=== PATIENT | female | born 1975 | race Caucasian/White ===

== ENCOUNTER 2016-03-28 22:05 | Emergency (ER) | payer MEDICAID, OTHER ==
[~2016-03-28] VITALS: Ht 160 cm; Wt 125.2 kg
[2016-03-28 23:01] VITALS: BP 155/87
--- NOTE | 2016-03-29 01:10 | NUR ---
TO ER BED 7
--- NOTE | 2016-03-29 01:18 | NUR ---
Megan martinez in [facility] - 03/29/16 at 0119 by [facility] TO ER BED 7
--- NOTE | 2016-03-29 01:28 | NUR ---
PATIENT PRESENTS TO ED WITH RECTAL BLEEDING . PT STATES SHE NOTICED THE BLEED AROUND 0700 YESTERDAY MORNING AND IT HAS BECAME WORSE SINCE . DENIES N/V/D; SKIN IS PINK/WARM/DRY; AAOX4 WITH EVEN AND STEADY GAIT; LUNGS CLEAR BL; HR EVEN AND REGULAR; PT DENIES ANY FEVER, CP, SOB, OR COUGH AT THIS TIME; PATIENT STATES PAIN OF 0/10 AT THIS TIME; VSS; PATIENT POSITIONED FOR COMFORT; HOB ELEVATED; BEDRAILS UP X2; BED DOWN. ER MD MADE AWARE OF PT STATUS.
--- NOTE | 2016-03-29 03:07 | NUR ---
Patient appears to be resting comfortably in bed. Vital Signs within normal limits. Respirations even and unlabored. NO DISTRESS NOTED AT THIS TIME
[2016-03-29 03:56] VITALS: BP 120/83
--- NOTE | 2016-03-29 03:56 | NUR ---
Patient discharged with v/s stable. Written and verbal after care instructions given and explained. Patient alert, oriented and verbalized understanding of instructions. Ambulatory with steady gait. All questions addressed prior to discharge. ID band removed. Patient advised to follow up with PMD. Rx of SENOKOT given. Patient educated on indication of medication including possible reaction and side effects. Opportunity to ask questions provided and answered.
== END 2016-03-29 03:56 | disposition home or self-care (01) ==
LOC: EEVIPCON 22:05 → MED 22:05
DX: K62.5 Hemorrhage of anus and rectum (principal); R03.0 Elevated blood-pressure reading, without diagnosis of hypertension